=== PATIENT | male | born 1945 | race Caucasian/White ===

== ENCOUNTER 2023-05-24 23:46 | Emergency (ER) | payer OTHER ==
[~2023-05-24] VITALS: Ht 177.8 cm; Wt 90.7 kg
[2023-05-25] MEDS ORDERED: METHOCARBAMOL500 M1 PO (05:29)
[2023-05-25] MEDS ORDERED: HYDROCODONE-AC1 EAC1 PO (05:29)
== END 2023-05-25 05:31 | disposition home or self-care (01) ==
LOC: ED 23:46
DX: S80.12XA Contusion of left lower leg, initial encounter (principal); R07.89 Other chest pain; V89.2XXA Person injured in unspecified motor-vehicle accident, traffic, initial encounter; Y93.89 Activity, other specified; Y92.410 Unspecified street and highway as the place of occurrence of the external cause; Y99.8 Other external cause status